=== PATIENT | male | born 1995 | race Caucasian/White ===

== ENCOUNTER 2023-08-17 15:43 | Emergency (ER) | payer MEDICAID ==
[~2023-08-17] VITALS: Ht 182.9 cm; Wt 117.9 kg
[2023-08-17 15:45] VITALS: BP_SYST 136; PULSE 102; RESP 19; TEMP 97.3; O2SAT 99
[2023-08-17 16:59] LABS: PROTHROMBIN TIME 10.4 SECS (9.5-12.5)
[2023-08-17 17:00] LABS: ALBUMIN 3.9 g/dL (3.4-4.8); BILIRUBIN,DIRECT 0.1 mg/dL (0.0-0.3); CALCIUM 8.4 mg/dL (8.4-11.0); CREATININE 1.12 mg/dL (0.55-1.30); TOTAL BILIRUBIN 0.4 mg/dL (0.0-1.0); TOTAL PROTEIN, SERUM 7.6 g/dL (6.4-8.3)
[2023-08-17 17:14] LABS: POTASSIUM 3.8 mmol/L (3.5-5.1)
[2023-08-17 17:31] LABS: BASOPHILS % (AUTO) 0.3 % (0.0-2.0); EOSINOPHILS # (AUTO) 0.1 K/uL (0.0-0.4); EOSINOPHILS % (AUTO) 1.6 % (0.0-4.0); HEMATOCRIT 49.4 % (36-54); HEMOGLOBIN 16.3 g/dL (14.0-18.0); LYMPHOCYTES # (AUTO) 1.8 K/uL (1.0-5.5); LYMPHOCYTES % (AUTO) 22.3 % (20.5-51.5); MEAN CORPUSCULAR HEMOGLOBIN 27 pg (27-31); MEAN CORPUSCULAR HGB CONC 33 % (32-36); MEAN CORPUSCULAR VOLUME 82 fL (79.0-98.0); MONOCYTES # (AUTO) 0.5 K/uL (0.0-1.0); MONOCYTES % (AUTO) 5.8 % (1.7-9.3); NEUTROPHILS # (AUTO) 5.6 K/uL (1.8-7.7); PLATELET COUNT (AUTO) 291 K/uL (130-430); RED BLOOD CELL COUNT(AUTO) 6.04 MIL/uL (4.2-6.2); RED CELL DISTRIBUTION WIDTH 13.5 % (9.0-15.0); WHITE BLOOD COUNT (AUTO) 8.1 K/uL (4.8-10.8)
[2023-08-17] MEDS ORDERED: IBUP-1971 PO (17:57)
[2023-08-17] MEDS ORDERED: AMOX-423 PO (17:57)
== END 2023-08-17 18:02 | disposition home or self-care (01) ==
LOC: SED 15:43
DX: K62.5 Hemorrhage of anus and rectum (principal); K52.9 Noninfective gastroenteritis and colitis, unspecified; R10.13 Epigastric pain; Z79.899 Other long term (current) drug therapy
CPT/HCPCS: 36415; 76376; 80048; 80076; 82150; 83605; 83690; 85025; 85610-TC; 85730-TC; 86886; 86900; 86901; 99284

== ENCOUNTER 2024-02-05 13:41 | Emergency (ER) | payer MEDICAID ==
[~2024-02-05] VITALS: Ht 182.9 cm; Wt 117.9 kg
[~2024-02-05 13:41] MED LIST: AMOX-423 PO; IBUP-1971 PO
[2024-02-05 13:48] VITALS: BP_SYST 126; PULSE 78; RESP 22; TEMP 98.3; O2SAT 98
[2024-02-05 15:15] LABS: HEMOGLOBIN 15.8 g/dL (14.0-18.0); MEAN CORPUSCULAR HEMOGLOBIN 27 pg (27-31); MEAN CORPUSCULAR HGB CONC 33 % (32-36); MEAN CORPUSCULAR VOLUME 81 fL (79.0-98.0); RED BLOOD CELL COUNT(AUTO) 5.89 MIL/uL (4.2-6.2)
[2024-02-05 15:25] LABS: BASOPHILS % (AUTO) 0.5 % (0.0-2.0); EOSINOPHILS # (AUTO) 0.2 K/uL (0.0-0.4); HEMATOCRIT 47.5 % (36-54); LYMPHOCYTES % (AUTO) 23.1 % (20.5-51.5); MONOCYTES # (AUTO) 0.6 K/uL (0.0-1.0); MONOCYTES % (AUTO) 6.6 % (1.7-9.3); NEUTROPHILS # (AUTO) 5.8 K/uL (1.8-7.7); NEUTROPHILS % (AUTO) 67.8 % (40.0-70.0); PLATELET COUNT (AUTO) 261 K/uL (130-430); RED CELL DISTRIBUTION WIDTH 14.4 % (9.0-15.0); WHITE BLOOD COUNT (AUTO) 8.6 K/uL (4.8-10.8)
[2024-02-05 15:40] LABS: CALCIUM 9.4 mg/dL (8.4-11.0); CREATININE 0.77 mg/dL (0.55-1.30); POTASSIUM 4.6 mmol/L (3.5-5.1)
[2024-02-05] MEDS ORDERED: MAGN296S8 PO (15:49)
[2024-02-05] MEDS ORDERED: ANURH RC (15:49)
[2024-02-05 15:55] VITALS: BP_SYST 126; PULSE 78; RESP 22; TEMP 98.3; O2SAT 98
== END 2024-02-05 15:55 | disposition home or self-care (01) ==
LOC: SED 13:41
DX: K62.5 Hemorrhage of anus and rectum (principal); R10.11 Right upper quadrant pain; Z79.899 Other long term (current) drug therapy; Z79.2 Long term (current) use of antibiotics
CPT/HCPCS: 36415; 74018; 80048; 85025; 99284